=== PATIENT | male | born 1945 | race Caucasian/White ===

== ENCOUNTER 2017-07-14 09:50 | Outpatient (CLI) | payer MEDICARE, OTHER ==
--- NOTE | 2017-07-14 12:56 | CT ---
CONTRAST ENHANCED CT IMAGES OF ABDOMEN AND PELVIS: HISTORY: Abdominal pain, left lower quadrant pain for 1 week. FINDINGS: Noncontrast-enhanced CT images of the abdomen and pelvis were obtained after the administration of IV and oral contrast. Images demonstrate coronary artery calcifications. The lung bases are unremarkable. No evidence of free intraperitoneal air is seen. The liver and spleen are unremarkable. The gallbladder is unremarkable. The pancreas demonstrates s ome inflammatory change and edema surrounding the pancreatic tail. There is also some fat stranding in the peripancreatic fat running along the left Gerota's fascia. This may represent possible change s of pancreatitis. Adrenal glands unremarkable. Some calcification is seen in the upper pole of the left kidney. This is compatible with nonobstructing left renal calculus. No evidence of periaortic lymphadenopath y is seen. Numerous descending sigmoid colonic diverticula are present. There does appear to be some sigmoid co lonic wall thickening concerning for possible colitis and/or diverticulitis. There is heterogeneity of the prostate gland. Prostate pathology cannot be excluded. Correlate with clinical exam and prostate evaluation electively. A normal appendix was visualized. Some fat is seen in the left inguinal canal compatible with left inguinal hernia. IMPRESSION: 1. Fat stranding surrounding the pancreatic tail concerning for pancreatitis. 2. Sigmoid colonic diverticulosis with mucosal thickening concerning for diverticulitis and/or colit is. 3. Left inguinal hernia. POS: [facility]
== END 2017-07-14 09:51 | disposition home or self-care (01) ==
LOC: SCSCT 09:50
PROVIDERS: ATTEND Internal Medicine
DX: K57.92 Diverticulitis of intestine, part unspecified, without perforation or abscess without bleeding (principal); K57.90 Diverticulosis of intestine, part unspecified, without perforation or abscess without bleeding; K57.30 Diverticulosis of large intestine without perforation or abscess without bleeding; K63.89 Other specified diseases of intestine; K40.90 Unilateral inguinal hernia, without obstruction or gangrene, not specified as recurrent; R50.9 Fever, unspecified; R63.0 Anorexia
CPT/HCPCS: 74177

== ENCOUNTER 2018-02-03 13:59 | Outpatient (CLI) | payer MEDICARE, OTHER ==
[2018-02-03 15:57] LABS: Hemoglobin 16.9 g/dL (14.0-18.0); Mean Corpuscular HGB CONC 33.1 g/dL (32.0-36.0); Mean Corpuscular Hemoglobin 33.6 pg (27.0-31.0); Mean Platelet Volume 7.9 fL (7.4-10.4); Platelet Count 253 thou/uL (130-400); RBC Distribution Width 12.3 % (11.5-14.5); Red Blood Cell (RBC) Count 5.03 mill/uL (4.70-6.10); White Blood Cell (WBC) Count 7.1 thou/uL (4.8-10.8)
[2018-02-03 16:18] LABS: Anion Gap 11 mmol/L (10-20); BUN (Urea Nitrogen) 19 mg/dL (8.4-25.7); Calc. Creatinine Clearance 0 mL/min (70-130); Calcium 9.5 mg/dL (7.8-10.44); Carbon Dioxide 29 mmol/L (23-31); Chloride 104 mmol/L (98-107); Estimated GFR-MDRD 63; Glucose 120 mg/dL (83-110); Potassium 4.1 mmol/L (3.5-5.1); Sodium 140 mmol/L (136-145)
--- NOTE | 2018-02-07 10:25 | EKG ---
Test Reason : Blood Pressure : / mmHG Vent. 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 Dory MEADOWS ([id number]) on 02/07/2018 10:25:29 AM Referred By: DIPTI Confirmed By:DR. Dory MEADOWS
== END 2018-02-03 14:00 | disposition home or self-care (01) ==
LOC: LABBT 13:59
PROVIDERS: ATTEND Neurological Surgery
DX: Z01.818 Encounter for other preprocedural examination (principal); M54.12 Radiculopathy, cervical region
CPT/HCPCS: 80048; 85027; 93005; 93010

== ENCOUNTER 2018-02-09 07:45 | Day surgery (SDC) | payer MEDICARE, OTHER ==
[2018-02-03 14:31] VITALS: BMI 29.7
[2018-02-09] MEDS ORDERED: CEFAZOLIN 2 GM/50 ML BAG ONE (11:19)
[2018-02-09] MEDS ORDERED: Midazolam HCl 2 mg/2 ml Vial ONE (12:03)
[2018-02-09] MEDS ORDERED: Fentanyl 100 MCG/2 ML VIAL ONE ×3 (13:36→16:09)
[2018-02-09] MEDS ORDERED: Sodium Chloride 0.9% 10 ML ONE (13:41)
[2018-02-09] MEDS ORDERED: Ondansetron PF 4 MG/2 ML Vial ONE (13:52)
[2018-02-09] MEDS ORDERED: PROPOFOL 200 MG/20 ML VIAL ONE (13:52)
[2018-02-09] MEDS ORDERED: Glycopyrrolate 0.2 MG/ML 5 ML SYRINGE ONE (13:52)
[2018-02-09] MEDS ORDERED: Lidocaine 1% PF 5 ML VIAL ONE (13:52)
[2018-02-09] MEDS ORDERED: PHENYLEPHRINE-NS 100 MCG/ML 10 ML SYRINGE ONE (13:52)
[2018-02-09] MEDS ORDERED: Morphine 4 MG/ML VIAL ONE (15:56)
[2018-02-09] MEDS ORDERED: HYDROcodone/Acetaminophen 10/325 mg Tablet ONE (16:54)
--- NOTE | 2018-02-09 17:15 | OP ---
DATE OF SURGERY: 02/09/2018 SURGEON: Aneesh Sauer M.D. PROCEDURE: Anterior cervical discectomy C4-5, interbody arthrodesis vertebral biomechanical device, local morselized autograft, demineralized bone matrix, anterior titanium instrumentation C4-5. PROCEDURE IN DETAIL: The patient was brought to the operating room, intubated. He was positioned vences pine, head in modest extension on a gel-filled donut. Incision was made in the right precervical are a and dissected medial sternocleidomastoid muscle, identified the anterior cervical spine and our lev el was confirmed by x-ray. We debrided anterior osteophytes, placed distraction across the disk spac e and using the operating microscope and microdissection techniques, completely decompressed the neur al elements from foramen to foramen with particular attention to the left. Next, the bony endplates were decorticated for the purpose of arthrodesis and appropriately sized intravertebral biomechanical PEEK device was brought into the field, filled with demineralized bone matrix and local morselized a utograft, and tapped into place securely at C4-5. Next, an anterior plate was brought in the field a nd secured to C4 and C5 using two 14 mm screws at each level. The wound was then extensively irrigat ed, immaculate hemostasis was secured. The wound was closed in anatomic layers.
== END 2018-02-09 17:42 | disposition home or self-care (01) ==
LOC: SDC 07:45
PROVIDERS: ATTEND Neurological Surgery
PROC: 0RG10A0 Fusion of Cervical Vertebral Joint with Interbody Fusion Device, Anterior Approach, Anterior Column, Open Approach (ICD-10-PCS; principal; 2018-02-09)
PROC: 0RT30ZZ Resection of Cervical Vertebral Disc, Open Approach (ICD-10-PCS; 2018-02-09)
DX: M50.121 Cervical disc disorder at C4-C5 level with radiculopathy (principal); E78.5 Hyperlipidemia, unspecified; I25.10 Atherosclerotic heart disease of native coronary artery without angina pectoris; I25.2 Old myocardial infarction; I10 Essential (primary) hypertension; Z79.82 Long term (current) use of aspirin; Z79.899 Other long term (current) drug therapy; Z95.5 Presence of coronary angioplasty implant and graft
CPT/HCPCS: 20930; 20936; 22551; 22845; 22853; 76001; 96374 ×2; C1713; C1776; J2001; J2250; J2270; J2405; J2704; J3010; J3490

== ENCOUNTER 2018-02-25 15:36 | Outpatient (CLI) | payer MEDICARE, OTHER ==
--- NOTE | 2018-02-25 17:33 | RAD ---
CERVICAL SPINE 3 VIEWS: Date: 02/25/18 HISTORY: Internal fixation. Neck surgery. FINDINGS: Anterior operative hardware at the C4-5 level without perihardware lucency. Metallic markers associat ed with interbody fusion material are within the confines of the disc space. Disc space narrowing at the C5-6 and C6-7 levels. Mild osteophytosis. IMPRESSION: Anterior operative fixation of the mid cervical spine. POS: [facility]
== END 2018-02-25 15:37 | disposition home or self-care (01) ==
LOC: TBSIIMAG 15:36
PROVIDERS: ATTEND Neurological Surgery
DX: M54.2 Cervicalgia (principal); Z98.1 Arthrodesis status
CPT/HCPCS: 72040

== ENCOUNTER 2018-04-08 14:11 | Outpatient (CLI) | payer MEDICARE, BC ==
--- NOTE | 2018-04-08 15:58 | RAD ---
CERVICAL SPINE 4 VIEWS: HISTORY: Neck pain. COMPARISON: 02/25/2018. FINDINGS: Anterior fixation plate is place at the C4-5 level without perihardware lucency. Metallic markers as sociated with interbody fusion material are within the confines of the disk space. Mild osteophytosi s. Vertebral body heights are maintained. Cervicothoracic junction intact. No acute fracture or di slocation. IMPRESSION: Anterior operative fixation of the mid cervical spine, stable. POS: [facility]
== END 2018-04-08 14:12 | disposition home or self-care (01) ==
LOC: TBSIIMAG 14:11
PROVIDERS: ATTEND Neurological Surgery
DX: M54.12 Radiculopathy, cervical region (principal); Z98.1 Arthrodesis status
CPT/HCPCS: 72040

== ENCOUNTER 2024-01-21 13:15 | Outpatient (CLI) | payer MEDICARE, BC ==
[2024-01-21 15:48] LABS: #Basophils 0.03 10x3/uL (0.0-0.2); %Basophils 0.6 % (0.0-1.0); %Eosinophils 1.9 % (0.0-10.0); %Lymphocytes 18.7 % (21.0-51.0); %Monocytes 9.4 % (0.0-10.0); %Neutrophils 69.2 % (42.0-75.0); Hematocrit 43.1 % (42.0-52.0); Hemoglobin 14.5 g/dL (14.0-18.0); Mean Corpuscular HGB CONC 33.6 g/dL (32.0-36.0); Mean Corpuscular Hemoglobin 33.2 pg (27.0-31.0); Mean Corpuscular Volume 98.6 fL (78.0-98.0); Mean Platelet Volume 9.8 fL (7.4-10.4); Platelet Count 223 10x3/uL (130-400); RBC Distribution Width 12.4 % (11.5-14.5); Red Blood Cell (RBC) Count 4.37 mill/uL (4.70-6.10)
[2024-01-21 16:01] LABS: INR-International Normal Ratio 1.1; PTT 24.3 sec (22.9-36.1); Prothrombin Time 14.1 sec (12.0-14.7)
[2024-01-21 16:06] LABS: Anion Gap 13 mmol/L (10-20); BUN (Urea Nitrogen) 15 mg/dL (8.4-25.7); Calc. Creatinine Clearance 0 mL/min (70-130); Calcium 9.4 mg/dL (7.8-10.44); Carbon Dioxide 25 mmol/L (23-31); Chloride 103 mmol/L (98-107); Estimated GFR 83; Glucose 91 mg/dL (83-110); Potassium 3.5 mmol/L (3.5-5.1); Sodium 137 mmol/L (136-145)
== END 2024-01-21 13:16 | disposition home or self-care (01) ==
LOC: LABBT 13:15
PROVIDERS: ATTEND Urology
DX: Z01.812 Encounter for preprocedural laboratory examination (principal); N35.919 Unspecified urethral stricture, male, unspecified site; R31.29 Other microscopic hematuria
CPT/HCPCS: 80048; 85025; 85610; 85730; 87086

== ENCOUNTER 2024-01-30 05:53 | Day surgery (SDC) | payer MEDICARE, BC ==
[2024-01-21 14:31] VITALS: BMI 29.9
[2024-01-30] MEDS ORDERED: Lidocaine 1% MPF 2 ML VIAL ONE (06:18)
[2024-01-30] MEDS ORDERED: Propofol 1,000 MG/100 ML VIAL IV ONE (06:49)
[2024-01-30] MEDS ORDERED: Lidocaine 2% PF 5 ML VIAL ONE (06:57)
[2024-01-30] MEDS ORDERED: PROPOFOL 20 ML ONE (06:57)
[2024-01-30] MEDS ORDERED: fentaNYL PF 100 MCG/2 ML SYRINGE ONE (06:57)
[2024-01-30] MEDS ORDERED: Iopamidol 0 ML ONE (07:27)
[2024-01-30] MEDS ORDERED: SUGAMMADEX SODIUM 200 MG/2 ML VIAL ONE (08:40)
[2024-01-30] MEDS ORDERED: Dexamethasone 4 mg/ml Vial ONE (08:41)
[2024-01-30] MEDS ORDERED: Ondansetron PF 4 MG/2 ML Vial ONE (08:41)
[2024-01-30] MEDS ORDERED: CEFAZOLIN 2 GM VIAL ONE (08:54)
[2024-01-30] MEDS ORDERED: ePHEDrine Sulfate 50 MG/10 ML VIAL ONE (09:03)
[2024-01-30] MEDS ORDERED: Rocuronium Bromide 10 MG/ML (10ML VIAL) ONE (09:03)
[2024-01-30] MEDS ORDERED: Glycopyrrolate 0.2 MG/ML 5 ML SYRINGE ONE (09:26)
[2024-01-30] MEDS ORDERED: PHENYLEPHRINE-NS 100 MCG/ML 10 ML SYRINGE ONE (09:26)
== END 2024-01-30 12:48 | disposition home or self-care (01) ==
LOC: SDC 05:53
PROVIDERS: ATTEND Urology
PROC: 0TCD8ZZ Extirpation of Matter from Urethra, Via Natural or Artificial Opening Endoscopic (ICD-10-PCS; principal; 2024-01-30)
DX: N35.919 Unspecified urethral stricture, male, unspecified site (principal); N20.1 Calculus of ureter; I25.10 Atherosclerotic heart disease of native coronary artery without angina pectoris; I25.2 Old myocardial infarction; I10 Essential (primary) hypertension; E78.00 Pure hypercholesterolemia, unspecified; E03.9 Hypothyroidism, unspecified; K57.90 Diverticulosis of intestine, part unspecified, without perforation or abscess without bleeding; G47.33 Obstructive sleep apnea (adult) (pediatric); N40.0 Benign prostatic hyperplasia without lower urinary tract symptoms; Z95.5 Presence of coronary angioplasty implant and graft; Z87.891 Personal history of nicotine dependence; Z90.79 Acquired absence of other genital organ(s); Z79.899 Other long term (current) drug therapy
CPT/HCPCS: 52310; 82365; J1100; J2405; J2704 ×2; 88300; Q9967